=== PATIENT | female | born 1985 | race Caucasian/White ===

== ENCOUNTER → 2016-05-30 | Outpatient (CLI) | payer MEDICAID ==
[~2016-05-30] MED LIST: IBUP-232 PO; OMEP20TA PO; OMEP40CA2 PO; PROM25TA5 PO; TRAM50TA PO; ZOFR4TAB3 SL
[2016-05-30 11:09] LABS: AUTOMATED NEUTROPHIL # 6.4 TH/MM3 (1.8-7.7); BASOPHIL # 0.1 TH/MM3 (0-0.2); BASOPHIL % 0.5 % (0.0-2.0); EOSINOPHIL # 0.1 TH/MM3 (0-0.4); EOSINOPHIL % 1.1 % (0.0-4.0); HEMATOCRIT 42.7 % (35.0-46.0); HEMO FLAGS DIFF FINAL; LYMPH % 30.1 % (9.0-44.0); MEAN CELL VOLUME 89.6 FL (80.0-100.0); MEAN CORPUSCULAR HEMOGLOBIN 30.6 PG (27.0-34.0); MEAN CORPUSCULAR HGB CONC 34.1 % (32.0-36.0); MONO % 3.8 % (0.0-8.0); NEUT % 64.5 % (16.0-70.0); PLATELET COUNT 316 TH/MM3 (150-450); RED BLOOD COUNT 4.76 MIL/MM3 (4.00-5.30); RED CELL DISTRIBUTION WIDTH 13.8 % (11.6-17.2)
[2016-05-30 11:17] LABS: ALKALINE PHOSPHATASE 64 U/L (45-117); ALT (GPT) 20 U/L (10-53); ANION GAP 7 MEQ/L (5-15); AST (GOT) 12 U/L (15-37); BICARBONATE 29.4 MEQ/L (21.0-32.0); BLOOD UREA NITROGEN 11 MG/DL (7-18); CHLORIDE 102 MEQ/L (98-107); GLOMERULAR FILTRATION RATE 102 ML/MIN (>89); GLUCOSE,FASTING 83 MG/DL (74-99); POTASSIUM 4.2 MEQ/L (3.5-5.1); SODIUM (NA) 138 MEQ/L (136-145); TOTAL BILIRUBIN ADULT 0.4 MG/DL (0.2-1.0)
[2016-05-30 11:19] LABS: BHCG SCREEN QUALITATIVE LESS THAN 1 MIU/ML (0-5)
[2016-05-30 11:20] LABS: BLOOD, URINE NEG (NEG); GLUCOSE,URINE NEG (NEG); KETONE, URINE NEG (NEG); MUCUS URINE FEW /lpf (OCC); NITRITE,URINE NEG (NEG); PH, URINE 6.5 (5.0-8.5); URINE COLOR LIGHT-YELLOW (YELLW/STRAW)
[2016-05-30 11:30] LABS: COMMENT (UR) CULT NOT INDICATED; CULTURE IF INDICATED CULT NOT INDICATED
== END ==
LOC: CPRE 10:21
PROVIDERS: ATTEND Obstetrics & Gynecology Gynecology
DX: R10.2 Pelvic and perineal pain (principal); Z01.812 Encounter for preprocedural laboratory examination
CPT/HCPCS: 36415; 80053; 81001; 84703; 85025

== ENCOUNTER → 2016-06-07 | Day surgery (SDC) | payer MEDICAID ==
--- NOTE | 2016-05-30 17:41 | MH ---
cc: WESLEY SHER DATE OF ADMISSION: 06/07/2016 DATE OF : 09/21/1995 ADMITTING DIAGNOSIS Scheduled for admission on 06/07 for laparoscopy, cystoscopy, chronic pelvic pain, urinary retention and urinary pain. HISTORY OF PRESENT ILLNESS The patient is a 30-year-old white female 2, para 1 who has had issues with chronic pelvic pain and documented urinary retention. Her exam has been unremarkable. She has had negative imaging studies. She has had documented postvoid residuals that have actually decreased over the past several months but still having issues with pain on the right side worse when she has her period and bladder discomfort. She has been on opioids in the past for shoulder pain, she is presently on tramadol. MEDICAL HISTORY 1. Migraine headaches. 2. Chronic pain. 3. Shoulder injury. 4. Abnormal Pap smear. 5. Recurrent sinusitis. 6. Mild depression. MEDICATIONS 1. Phenergan 25 mg p.r.n. 2. Ibuprofen 600 mg t.i.d. p.r.n. 3. Tramadol 50 mg q.6 hours p.r.n. ALLERGIES NONE. GYNECOLOGIC HISTORY Distant history of abnormal Pap smears. Cycles are once a month. OBSTETRICAL HISTORY One vaginal delivery. FAMILY HISTORY Noncontributory. SOCIAL HISTORY Smokes half-a-pack a day. No alcohol or drugs. FAMILY HISTORY Noncontributory. REVIEW OF SYSTEMS As above. No chest pain orthopnea or PND. No nausea, vomiting, fever or chills. Otherwise, a 14-point review negative. PHYSICAL EXAMINATION VITAL SIGNS: She is afebrile, vital signs stable, blood pressure is 120/70. Height is 5'4", weight 145, BMI is 25. GENERAL: The patient is alert and oriented, in no acute distress. No sign of cognitive disfunction or depression. HEENT: Within normal limits. NECK: Supple. No JVD. CHEST: Clear. HEART: Regular rate and rhythm. ABDOMEN: Soft, nontender. No hepatosplenomegaly. No CVA tenderness. PELVIC EXAM: Will be detailed under anesthesia. EXTREMITIES: Normal. SKIN: Without rashes. NEUROLOGIC: Nonfocal. No DVT signs. ASSESSMENT The patient with chronic pelvic pain unresponsive to medicinal therapy. We have discussed extensively options for management and treatment. She is aware of the multifactorial nature of pelvic pain and the possibility of a negative laparoscopy. She is aware of the risks, benefits and alternatives of surgery and has made informed choice to proceed. Regarding cystoscopy, she does have bladder pain issues. She has a history of unexplained retention. She has had negative imaging study of the central nervous system. We will provide cystoscopic evaluation of the bladder to see if we can elicit any issues regarding obstruction. We will use antibiotic prophylaxis with Ancef 1 gram, DVT prophylaxis with sequential compression device. Anticipate outpatient procedure. MD LAITH Plata/BJF /5:06 PM /5:18 PM MTDD
[~2016-06-07] VITALS: Ht 162.6 cm; Wt 70.2 kg
[~2016-06-07] MED LIST changes: +ACETAMINOPHEN 1000 MG/100 ML VIAL IV ONE; +DEXAMETHASONE SOD PHOS 4 MG/ML VIAL ONE; +DO NOT ADM ANY ANTICOAGULANT DRUGS XX PRN; +FUROSEMIDE 40 MG/4 ML VIAL ONE; -IBUP-232 PO; +INSULIN HUMAN REGULAR 1,000 UNITS/10 ML VIAL SQ PRN; +KETOROLAC TROMETHAMINE 10 MG TAB PO PRN; +KETOROLAC TROMETHAMINE 30 MG/ML (IVP) VIAL IV PUSH PRN; +KETOROLAC TROMETHAMINE 60 MG/2 ML (IM) VIAL IM ONE; +KETOROLAC TROMETHAMINE 60 MG/2 ML (IM) VIAL IM PRN; +LACTATED RINGER'S 1000 ML INJ 1,000 ML IV ONE; +LACTATED RINGER'S 1000 ML INJ 1,000 ML ONE; +LACTATED RINGER'S 1000 ML IV SCH; +LIDOCAINE 1%/EPINEPHrine 1:100,000 SOLN 20 ML VIAL ONE; +METOPROLOL TARTRATE 25 MG TAB PO PRN; +MIDAZOLAM HCL 2 MG/2 ML VIAL ONE; +NEOSTIGMINE 3 MG/3 ML SYR IV ONE; +ONDANSETRON HCL 4 MG/2 ML VIAL IV PUSH ONE; +ONDANSETRON HCL 4 MG/2 ML VIAL IV PUSH PRN; -PROM25TA5 PO; +PROPOFOL 200 MG/20 ML AMP IV ONE; +SODIUM CHLORID 0.9% 500 ML IV SCH; +SODIUM CHLORIDE 0.9% INJ 100 ML ONE; -TRAM50TA PO; +ceFAZolin 1,000 MG/NS 100 ML IV SCH; +ceFAZolin INJ 1,000 MG VIAL ONE; +fentaNYL CITRATE 250 MCG/5 ML AMP ONE
[2016-06-07 06:50] VITALS: BP 135/72; PULSE 65; RESP 16; TEMP 98.5; O2SAT 98
[2016-06-07 09:20] VITALS: PULSE 116
[2016-06-07 11:08] VITALS: BP 151/78; PULSE 71; RESP 16; O2SAT 100
--- NOTE | 2016-06-12 07:58 | MP ---
cc: JORGE SHER MD DATE OF SURGERY 06/07/2016 PREOPERATIVE DIAGNOSES 1. Chronic pelvic pain 2. Bladder dysfunction and pain POSTOPERATIVE DIAGNOSIS 1. Chronic pelvic pain 2. Bladder dysfunction and pain with paratubal cysts bilaterally on the tubes. 3. Small foci of endometriosis right uterosacral ligament. 4. Normal bladder PROCEDURE 1. Laparoscopic revision of tubes with paratubal cysts. 2. Diagnostic cystoscopy coupled with diagnosis of bladder pain. 3. Removal of a foci of endometriosis right uterosacral ligament. SURGEON Jorge Sher MD ANESTHESIA Endotracheal BLOOD LOSS Less and 10 cc URINE OUTPUT 200 cc of crystalloid [employer] [place] staff x1 FINDINGS External genitalia normal. POP-Q score: Aa is -2, Ap is -2. Point C is -8. Total vaginal length is 10. Genital hiatus is 6. Perineal body is 4. The uterus is retroverted, mobile, normal size. On the right side, there is approximately 1 cm x 2 cm paratubal cysts, clear fluid mobile. Next on the left side a slightly larger paratubal cyst, but the ovary is mobile and the tube itself is mobile. The right uterosacral ligament has a foci of endometriosis. The upper abdomen is normal with normal appendix as well. Cystoscopy shows normal trigone, good coaptation of urethra, ureteral orifices patent x2. Dome and base of bladder normal. No sign of Mich's ulcers, glomerulations or other abnormalities of the bladder. SPECIMENS 1. Right paratubal cyst 2. Left paratubal cyst COMPLICATIONS None DISPOSITION To recovery room stable. COUNTS Needle and sponge counts correct. DRAINS Neville catheter ANTIBIOTIC PROPHYLAXIS Ancef one gram DVT PROPHYLAXIS Sequential compression device. TIME OUT PROCEDURE Per protocol SUMMARY OF INDICATIONS FOR THE PROCEDURE Patient with chronic pelvic pain predominantly right side, but sometimes comes across to the left. Also has issues with bladder dysfunction including pain and difficulty emptying the bladder. She has had negative imaging studies and has opted for surgical evaluation. The patient was taken to the operating room theater, identified, prepped and draped in a fashion appropriate for the planned procedure. She is in the dorsal lithotomy position with careful attention paid to placement of legs in the stirrups to avoid undue stress to sensitive neurovascular structures. The above findings noted. Neurovascular integrity documented. Neville catheter was placed. The umbilicus was infiltrated with epinephrine/lidocaine solution. A 5 mL scope was placed under direct visualization. Trendelenburg position instituted. A suprapubic catheter and a suprapubic trocar was placed under direct visualization. The above findings noted. The left lower quadrant trocar was placed under direct visualization. Paratubal cysts were removed on the right and left. Some revision of the left-sided tube was required, but overall the tubes were mobile. Ovaries were normal. Appendix and upper abdomen were normal. There was a small foci of endometriosis over the right uterosacral ligament. This was removed without difficulty. Gas was expressed. All areas were hemostatic with and without gas pressure. We placed hemostatic powder over the areas of dissection for added reassurance The incisions were closed with 4-0 Vicryl and Dermabond. In light of the patient's history of bladder dysfunction and bladder pain, cystoscopy was performed. A 17-Swedish bridge, a 70 degrees scope was used normal. Normal saline was used for distension media. The above findings noted. There were no abnormalities of the bladder noted. The procedure was concluded. The patient reversed from anesthesia, taken to the recovery room stable condition. Should the patient have issues with continued pain, it is more likely to be a bowel issue with IBS, although it is possible that there could be some dysmenorrhea and endometriosis issues that may benefit from menstrual suppression. As far as the bladder dysfunction goes, there was no clear etiology to that issue. It may be related to her use of narcotics for shoulder pain. MD LAITH Plata/KIM /9:24 AM /7:37 AM
== END | disposition home or self-care (01) ==
LOC: HSDC 06:02
PROVIDERS: ATTEND Obstetrics & Gynecology Gynecology
DX: N80.9 Endometriosis, unspecified (principal); N83.8 Other noninflammatory disorders of ovary, fallopian tube and broad ligament; R10.2 Pelvic and perineal pain; R39.89 Other symptoms and signs involving the genitourinary system; G89.29 Other chronic pain; R33.9 Retention of urine, unspecified
CPT/HCPCS: 00840; 52000; 58662; 88304; J0131; J0690; J1100; J1885; J1940; J2250; J2405; J2710; J3010; J7120

== ENCOUNTER 2017-01-19 06:19 | Emergency (ER) | payer MEDICAID ==
[~2017-01-19] VITALS: Ht 157.5 cm; Wt 70.0 kg
[~2017-01-19 06:19] MED LIST changes: -ACETAMINOPHEN 1000 MG/100 ML VIAL IV ONE; -DEXAMETHASONE SOD PHOS 4 MG/ML VIAL ONE; -DO NOT ADM ANY ANTICOAGULANT DRUGS XX PRN; -FUROSEMIDE 40 MG/4 ML VIAL ONE; -INSULIN HUMAN REGULAR 1,000 UNITS/10 ML VIAL SQ PRN; -KETOROLAC TROMETHAMINE 10 MG TAB PO PRN; -KETOROLAC TROMETHAMINE 30 MG/ML (IVP) VIAL IV PUSH PRN; -KETOROLAC TROMETHAMINE 60 MG/2 ML (IM) VIAL IM ONE; -KETOROLAC TROMETHAMINE 60 MG/2 ML (IM) VIAL IM PRN; -LACTATED RINGER'S 1000 ML INJ 1,000 ML IV ONE; -LACTATED RINGER'S 1000 ML INJ 1,000 ML ONE; -LACTATED RINGER'S 1000 ML IV SCH; -LIDOCAINE 1%/EPINEPHrine 1:100,000 SOLN 20 ML VIAL ONE; -METOPROLOL TARTRATE 25 MG TAB PO PRN; -MIDAZOLAM HCL 2 MG/2 ML VIAL ONE; -NEOSTIGMINE 3 MG/3 ML SYR IV ONE; -OMEP20TA PO; -ONDANSETRON HCL 4 MG/2 ML VIAL IV PUSH ONE; -ONDANSETRON HCL 4 MG/2 ML VIAL IV PUSH PRN; -PROPOFOL 200 MG/20 ML AMP IV ONE; -SODIUM CHLORID 0.9% 500 ML IV SCH; -SODIUM CHLORIDE 0.9% INJ 100 ML ONE; -ceFAZolin 1,000 MG/NS 100 ML IV SCH; -ceFAZolin INJ 1,000 MG VIAL ONE; -fentaNYL CITRATE 250 MCG/5 ML AMP ONE
[2017-01-19 06:21] VITALS: BP 113/72; PULSE 81; RESP 16; TEMP 98; O2SAT 98
[2017-01-19] MEDS ORDERED: LEVO750T3 PO (06:39)
[2017-01-19] MEDS ORDERED: TIZA4CAP3 PO (06:39)
[2017-01-19] MEDS ORDERED: ACETAMINOPHEN/HYDROcodone 325 MG/5 MG TAB PO ONE (07:45)
[2017-01-19] MEDS ORDERED: HYDR-3533 PO (07:46)
--- NOTE | 2017-01-19 07:46 | PD ---
HPI Chief Complaint: Musculoskeletal Complaint Time Seen by Provider: 07:31 Travel History International Travel<30 days: No Contact w/Intl Traveler<30days: No Traveled to known affect area: No History of Present Illness HPI The patient is 31 years old. She reports waking up at 1 AM, 6 hours prior to ER arrival with severe pain in her bilateral hips knees and ankles. Quality ripping. Timing constant. She took a hot bath and tried Tylenol and Advil and tramadol. Nothing seemed to help. No fever. No rash. She reports normal state of health lately with no traumatic or excessive use type mechanism to explain her pain. She is a history of endometriosis, migraines, and chronic right shoulder pain following a injury 9 years ago. PFSH Past Medical History Bipolar Disorder: Yes Cancer: No Cardiovascular Problems: No Diabetes: No Diminished Hearing: No Endocrine: No Gastrointestinal Disorders: Yes (PELVIC PAIN, ESOPHAGITIS) Genitourinary: No Hepatitis: No Hiatal Hernia: Yes Immune Disorder: No Medical other: Yes (endmeteriosis) Musculoskeletal: No Neurologic: Yes (MIGRAINES) Psychiatric: No Reproductive: No Respiratory: No Migraines: Yes Thyroid Disease: No Tetanus Vaccination: Unknown ?: Not LMP: 12/29/2016 : 2 Para: 0 Miscarriage: 1 Past Surgical History AICD: No Body Medical Devices: PLATE AKANKSHA RIGHT SHOULDER Joint Replacement: No Pacemaker: No Social History Alcohol Use: Yes (occasionally) Tobacco Use: Yes Substance Use: No Allergies-Medications (Allergen,Severity, Reaction): Coded Allergies: No Known Allergies (Unverified , 01/19/17) Reported Meds & Prescriptions Reported Meds & Active Scripts Active Lortab (Hydrocodone-Acetaminophen) 5-325 Mg Tab 1-2 Tab PO Q6H PRN PLEASE DO NOT TAKE AT THE SAME TIME TIZANIDINE OR ANY NARCOTIC OR SEDATIVE. Reported Levofloxacin 750 Mg Tablet 750 Mg PO DAILY Tizanidine (Tizanidine HCl) 4 Mg Cap 4 Mg PO TID Zofran Odt (Ondansetron Odt) 4 Mg Tab 4 Mg SL Q8HR PRN Review of Systems Except as stated in HPI: all other systems reviewed are Neg General / Constitutional: No: Fever Physical Exam Narrative Vital Signs Date Time Temp Pulse Resp B/P (MAP) Pulse Ox O2 Delivery O2 Flow Rate FiO2 01/19/17 08:03 01/19/17 06:21 98.0 81 16 113/72 (56) 98 Room Air GENERAL: 31-year-old female pleasant well-nourished well-developed. SKIN: Focused skin assessment warm/dry. HEAD: Atraumatic. Normocephalic. EYES: Pupils equal and round. No scleral icterus. No injection or drainage. ENT: No nasal bleeding or discharge. Mucous membranes pink and moist. NECK: Trachea midline. No JVD. CARDIOVASCULAR: Regular rate and rhythm. No murmur appreciated. RESPIRATORY: No accessory muscle use. Clear to auscultation. Breath sounds equal bilaterally. GASTROINTESTINAL: Abdomen soft, non-tender, nondistended. Hepatic and splenic margins not palpable. MUSCULOSKELETAL: No obvious deformities. No clubbing. No cyanosis. No edema. Passive active ROM hips/knees/ankles intact. Active ROM intact. Ambulatory. NEUROLOGICAL: Awake and alert. No obvious cranial nerve deficits. Motor grossly within normal limits. Normal speech. PSYCHIATRIC: Appropriate mood and affect; insight and judgment normal. Data Data Last Documented VS Vital Signs Date Time Temp Pulse Resp B/P (MAP) Pulse Ox O2 Delivery O2 Flow Rate FiO2 01/19/17 08:03 01/19/17 06:21 98.0 81 16 98 Room Air Orders Orders Acetamin-Hydrocod 325-5 Mg (Tappen 5-325 (01/19/17 07:45) MDM Medical Decision Making Medical Screen Exam Complete: Yes Emergency Medical Condition: Yes Medical Record Reviewed: Yes Differential Diagnosis septic arthritis, fracture, gonococcal arthritis, trauma, chronic pain, restless leg syndrome Narrative Course No acute medical/surgical emergency. Pain control. Follow up with PMD. Return precautions discussed. Diagnosis Primary Impression: Polyarthritis of lower leg Additional Impression: Polyarthropathy of joints of lower leg Referrals: Primary Care Physician 2 days Additional Instructions: You have a choice when it comes to health care, and we are glad that you chose [facility]. Hopefully, we have met your expectations on today's visit. You are welcome to return to [facility] at any time, as we are committed to meeting the health care needs of our community. Med/Other Pt SpecificInfo: Prescription(s) given Scripts Hydrocodone-Acetaminophen (Lortab) 5-325 Mg Tab 1-2 TAB PO Q6H Y for PAIN SCALE 6 TO 10, #12 TAB 0 Refills PLEASE DO NOT TAKE AT THE SAME TIME TIZANIDINE OR ANY NARCOTIC OR SEDATIVE. Prov: Esvin Talbot MD 01/19/17 Disposition: 01 DISCHARGE HOME Condition: Stable Esvin Talbot MD Jan 19, 2017 07:46
== END 2017-01-19 08:10 | disposition home or self-care (01) ==
LOC: NEPC 06:19
DX: M13.0 Polyarthritis, unspecified (principal); G89.29 Other chronic pain; Z72.0 Tobacco use
CPT/HCPCS: 99283

== ENCOUNTER 2017-01-21 11:58 | Emergency (ER) | payer MEDICAID ==
[~2017-01-21 11:58] MED LIST changes: +HYDR-3533 PO; +LEVO750T3 PO; -OMEP40CA2 PO; +TIZA4CAP3 PO
[2017-01-21 12:00] VITALS: BP 152/65; PULSE 97; RESP 20; TEMP 98.8; O2SAT 98
--- NOTE | 2017-01-21 12:17 | PD ---
Data Data Last Documented VS Vital Signs Date Time Temp Pulse Resp B/P (MAP) Pulse Ox O2 Delivery O2 Flow Rate FiO2 01/21/17 15:36 76 18 146/72 (96) 98 01/21/17 12:00 98.8 Room Air Orders Orders Complete Blood Count With Diff (01/21/17 12:28) Basic Metabolic Panel (Bmp) (01/21/17 12:28) C-Reactive Protein (Crp) (01/21/17 12:28) Urinalysis - C+S If Indicated (01/21/17 12:28) Westergren Sedimentation Rate (01/21/17 12:28) Magnesium (Mg) (01/21/17 12:28) Thyroid Stimulating Hormone (01/21/17 12:28) Iv Access Insert/Monitor (01/21/17 12:28) Pelvis, Ap Only (Routine) (01/21/17 ) Methylprednisolone So Succ Inj (Solumedr (01/21/17 12:30) Ketorolac Inj (Toradol Inj) (01/21/17 12:30) Morphine Inj (Morphine Inj) (01/21/17 12:30) Knee, Complete (4vws) (01/21/17 ) Knee, Complete (4vws) (01/21/17 ) Ct Lumb Spine W/O Contrast (01/21/17 ) Rheumatoid Screen/Titer (Rf) (01/21/17 12:35) Creatine Kinase (Cpk) (01/21/17 13:06) Ondansetron Inj (Zofran Inj) (01/21/17 13:30) Ceftriaxone Inj (Rocephin Inj) (01/21/17 14:00) Labs Laboratory Tests Test 01/21/17 12:50 White Blood Count 13.2 TH/MM3 Red Blood Count 4.93 MIL/MM3 Hemoglobin 15.2 GM/DL Hematocrit 45.3 % Mean Corpuscular Volume 92.0 FL Mean Corpuscular Hemoglobin 30.8 PG Mean Corpuscular Hemoglobin Concent 33.5 % Red Cell Distribution Width 14.8 % Platelet Count 240 TH/MM3 Mean Platelet Volume 8.4 FL Neutrophils (%) (Auto) 74.8 % Lymphocytes (%) (Auto) 19.0 % Monocytes (%) (Auto) 4.9 % Eosinophils (%) (Auto) 0.8 % Basophils (%) (Auto) 0.5 % Neutrophils # (Auto) 9.9 TH/MM3 Lymphocytes # (Auto) 2.5 TH/MM3 Monocytes # (Auto) 0.6 TH/MM3 Eosinophils # (Auto) 0.1 TH/MM3 Basophils # (Auto) 0.1 TH/MM3 CBC Comment DIFF FINAL Differential Comment Erythrocyte Sedimentation Rate 1 mm/hr Urine Color YELLOW Urine Turbidity CLEAR Urine pH 6.5 Urine Specific [place] 1.012 Urine Protein NEG mg/dL Urine Glucose (UA) NEG mg/dL Urine Ketones 10 mg/dL Urine Occult Blood SMALL Urine Nitrite NEG Urine Bilirubin NEG Urine Urobilinogen LESS THAN 2.0 MG/DL Urine Leukocyte Esterase TRACE Urine RBC 5 /hpf Urine WBC 1 /hpf Urine Squamous Epithelial Cells 3 /hpf Urine Bacteria OCC /hpf Microscopic Urinalysis Comment CULT NOT INDICATED Blood Urea Nitrogen 11 MG/DL Creatinine 0.55 MG/DL Random Glucose 74 MG/DL Calcium Level 8.6 MG/DL Magnesium Level 2.4 MG/DL Sodium Level 137 MEQ/L Potassium Level 4.3 MEQ/L Chloride Level 105 MEQ/L Carbon Dioxide Level 24.1 MEQ/L Anion Gap 8 MEQ/L Estimat Glomerular Filtration Rate 129 ML/MIN Total Creatine Kinase 81 U/L C-Reactive Protein 2.91 MG/DL Thyroid Stimulating Hormone 3rd Gen 0.724 uIU/ML Rheumatoid Factor Screen NEGATIVE Rheumatoid Factor Titer IU/ML [place] Medical Record Reviewed: Yes Supervised Visit with SON: No Narrative Course 31 yo F. Pain in bilateral hips, knees and ankles. Duration x 5 days. Primary MD : Dr Viramontes sent to ER. Scripts Diclofenac Sodium (Diclofenac Sodium ) 75 Mg Tabdr 75 MG PO BID Y for PAIN SCALE 1 TO 10, #30 TAB 0 Refills Prov: Corrine Stallings MD 01/21/17 Hydrocodone-Acetaminophen (Lortab) 5-325 Mg Tab 1 TAB PO Q6H Y for PAIN, #15 TAB 0 Refills Prov: Corrine Stallings MD 01/21/17 Cephalexin (Keflex) 500 Mg Cap 500 MG PO Q8H for Infection for 10 Days, #3 CAP 0 Refills Prov: Corrine Stallings MD 01/21/17 Prednisone (48) 10 mg tab Dose Pack (Prednisone (48) 10 mg tab Dose Pack) 10 Mg Dspk 10 MG PO DIRECTED for Inflammation, #1 DSPK 0 Refills Prov: Corrine Stallings MD 01/21/17 Esvin Talbot MD Jan 21, 2017 12:17
[2017-01-21] MEDS ORDERED: methylPREDNISolone SOD SUCC 125 MG/2 ML VIAL IV PUSH ONE (12:30)
[2017-01-21] MEDS ORDERED: MORPHINE SULFATE 4 MG/ML INJ IV PUSH ONE (12:30)
[2017-01-21] MEDS ORDERED: KETOROLAC TROMETHAMINE 30 MG/ML (IVP) VIAL IV PUSH ONE (12:30)
--- NOTE | 2017-01-21 12:42 | PD ---
HPI Chief Complaint: Pain: Acute or Chronic Time Seen by Provider: 12:22 Travel History International Travel<30 days: No Contact w/Intl Traveler<30days: No Traveled to known affect area: No History of Present Illness HPI 31 yo female here for bilateral hip, knee and ankle pain. Per patient since Friday. Not getting better after being seen here. Seen by PCP who sent her by ambulance to [facility], patient was there for 1 hour and decided to come here instead. Per patient lortab doesn't help much. Pain feels like a burning to her joints. Recently on levaquin and steroids for ear infection. Has stopped meds for a week now. No injuries. No imaging or labs done. Unclear why PCP sent patient to the ER. pain per patient is 10 and only on the lower joints. No allergies to meds. Denies IV drugs. No STD exposure. PFSH Past Medical History Bipolar Disorder: Yes Cancer: No Cardiovascular Problems: No Diabetes: No Diminished Hearing: No Endocrine: No Gastrointestinal Disorders: Yes (PELVIC PAIN, ESOPHAGITIS) Genitourinary: No Hepatitis: No Hiatal Hernia: Yes Immune Disorder: No Musculoskeletal: No Neurologic: Yes (MIGRAINES) Psychiatric: No Reproductive: No Respiratory: No Migraines: Yes Thyroid Disease: No ?: Not : 2 Para: 1 Miscarriage: 1 Past Surgical History AICD: No Body Medical Devices: PLATE AKANKSHA RIGHT SHOULDER Joint Replacement: No Pacemaker: No Other Surgery: Yes Social History Alcohol Use: Yes (occasionally) Tobacco Use: Yes (pack a day ) Substance Use: No Allergies-Medications (Allergen,Severity, Reaction): Coded Allergies: No Known Allergies (Unverified , 01/21/17) Reported Meds & Prescriptions Reported Meds & Active Scripts Active Diclofenac Sodium DR (Diclofenac Sodium) 75 Mg Tabdr 75 Mg PO BID PRN Lortab (Hydrocodone-Acetaminophen) 5-325 Mg Tab 1 Tab PO Q6H PRN Keflex (Cephalexin) 500 Mg Cap 500 Mg PO Q8H 10 Days Prednisone (48) 10 mg tab Dose Pack (Prednisone) 10 Mg Dspk 10 Mg PO DIRECTED Lortab (Hydrocodone-Acetaminophen) 5-325 Mg Tab 1-2 Tab PO Q6H PRN PLEASE DO NOT TAKE AT THE SAME TIME TIZANIDINE OR ANY NARCOTIC OR SEDATIVE. Reported Levofloxacin 750 Mg Tablet 750 Mg PO DAILY Tizanidine (Tizanidine HCl) 4 Mg Cap 4 Mg PO TID Zofran Odt (Ondansetron Odt) 4 Mg Tab 4 Mg SL Q8HR PRN Review of Systems Except as stated in HPI: all other systems reviewed are Neg Physical Exam Narrative GENERAL: SKIN: Warm and dry. HEAD: Atraumatic. Normocephalic. EYES: Pupils equal and round. No scleral icterus. No injection or drainage. ENT: No nasal bleeding or discharge. Mucous membranes pink and moist. Tongue is midline. No uvula deviation. NECK: Trachea midline. No JVD. CARDIOVASCULAR: Regular rate and rhythm. No murmurs, S3, S4. RESPIRATORY: No accessory muscle use. Clear to auscultation. Breath sounds equal bilaterally. GASTROINTESTINAL: Abdomen soft, non-tender, nondistended. Hepatic and splenic margins not palpable. MUSCULOSKELETAL: Extremities without clubbing, cyanosis, or edema. No obvious deformities. Full range of motion of the upper and lower extremities bilaterally. 2+ pulses bilaterally. No obvious deformity noted to the joints. No obvious swelling noted to the joints. Patient able to move the joints fully. Very fidgety on the lower legs and cannot keep the lower legs still. NEUROLOGICAL: Awake and alert. No obvious cranial nerve deficits. Motor grossly within normal limits. Five out of 5 muscle strength in the arms and legs. Normal speech. PSYCHIATRIC: Appropriate mood and affect; insight and judgment normal. Data Data Last Documented VS Vital Signs Date Time Temp Pulse Resp B/P (MAP) Pulse Ox O2 Delivery O2 Flow Rate FiO2 01/21/17 13:41 18 01/21/17 12:25 94 01/21/17 12:00 98.8 152/65 (94) 98 Room Air Orders Orders Complete Blood Count With Diff (01/21/17 12:28) Basic Metabolic Panel (Bmp) (01/21/17 12:28) C-Reactive Protein (Crp) (01/21/17 12:28) Urinalysis - C+S If Indicated (01/21/17 12:28) Westergren Sedimentation Rate (01/21/17 12:28) Magnesium (Mg) (01/21/17 12:28) Thyroid Stimulating Hormone (01/21/17 12:28) Iv Access Insert/Monitor (01/21/17 12:28) Pelvis, Ap Only (Routine) (01/21/17 ) Methylprednisolone So Succ Inj (Solumedr (01/21/17 12:30) Ketorolac Inj (Toradol Inj) (01/21/17 12:30) Morphine Inj (Morphine Inj) (01/21/17 12:30) Knee, Complete (4vws) (01/21/17 ) Knee, Complete (4vws) (01/21/17 ) Ct Lumb Spine W/O Contrast (01/21/17 ) Rheumatoid Screen/Titer (Rf) (01/21/17 12:35) Creatine Kinase (Cpk) (01/21/17 13:06) Ondansetron Inj (Zofran Inj) (01/21/17 13:30) Ceftriaxone Inj (Rocephin Inj) (01/21/17 14:00) Labs Laboratory Tests Test 01/21/17 12:50 White Blood Count 13.2 TH/MM3 Red Blood Count 4.93 MIL/MM3 Hemoglobin 15.2 GM/DL Hematocrit 45.3 % Mean Corpuscular Volume 92.0 FL Mean Corpuscular Hemoglobin 30.8 PG Mean Corpuscular Hemoglobin Concent 33.5 % Red Cell Distribution Width 14.8 % Platelet Count 240 TH/MM3 Mean Platelet Volume 8.4 FL Neutrophils (%) (Auto) 74.8 % Lymphocytes (%) (Auto) 19.0 % Monocytes (%) (Auto) 4.9 % Eosinophils (%) (Auto) 0.8 % Basophils (%) (Auto) 0.5 % Neutrophils # (Auto) 9.9 TH/MM3 Lymphocytes # (Auto) 2.5 TH/MM3 Monocytes # (Auto) 0.6 TH/MM3 Eosinophils # (Auto) 0.1 TH/MM3 Basophils # (Auto) 0.1 TH/MM3 CBC Comment DIFF FINAL Differential Comment Erythrocyte Sedimentation Rate 1 mm/hr Urine Color YELLOW Urine Turbidity CLEAR Urine pH 6.5 Urine Specific [place] 1.012 Urine Protein NEG mg/dL Urine Glucose (UA) NEG mg/dL Urine Ketones 10 mg/dL Urine Occult Blood SMALL Urine Nitrite NEG Urine Bilirubin NEG Urine Urobilinogen LESS THAN 2.0 MG/DL Urine Leukocyte Esterase TRACE Urine RBC 5 /hpf Urine WBC 1 /hpf Urine Squamous Epithelial Cells 3 /hpf Urine Bacteria OCC /hpf Microscopic Urinalysis Comment CULT NOT INDICATED Blood Urea Nitrogen 11 MG/DL Creatinine 0.55 MG/DL Random Glucose 74 MG/DL Calcium Level 8.6 MG/DL Magnesium Level 2.4 MG/DL Sodium Level 137 MEQ/L Potassium Level 4.3 MEQ/L Chloride Level 105 MEQ/L Carbon Dioxide Level 24.1 MEQ/L Anion Gap 8 MEQ/L Estimat Glomerular Filtration Rate 129 ML/MIN C-Reactive Protein 2.91 MG/DL Thyroid Stimulating Hormone 3rd Gen 0.724 uIU/ML Rheumatoid Factor Screen NEGATIVE Rheumatoid Factor Titer IU/ML MDM Medical Decision Making Medical Screen Exam Complete: Yes Emergency Medical Condition: Yes Medical Record Reviewed: Yes Interpretation(s) CT of the lumbar spine show chronic changes but no acute disease. X-ray of the pelvis as well as the knees were negative for acute disease. CRP elevated at 2 ESR within normal limits. TSH WNL CBC & BMP Diagram 01/21/17 12:50 Calcium Level 8.6, Magnesium Level 2.4 Differential Diagnosis Polyarthritis versus polyarthropathy versus anxiety versus restless leg syndrome versus rheumatoid arthritis versus arthropathy versus medication side effect Narrative Course 31-year-old female that presents to the ED for evaluation of lower leg pain and burning. Patient was properly examined and was found to have signs and symptoms of unclear etiology. Patient was seen here and evaluated 2 days ago and had no imaging or blood work done. Patient was given Lortab with minimal relief. Patient was seen by her PCP today and was sent to the ER. She comes here for reevaluation. At this time unclear etiology of her symptoms. She does not appear to have any deficits neurologically or vascularly. She was recently on a fluoroquinolone as well as steroids. Questionable arthropathy versus poly arthropathy like rheumatoid arthritis or radiculopathy. Patient was started on IV. Labs were ordered. Imaging was ordered. Patient was started on anti-inflammatories to cover for arthropathy as well as pain medication. Labs and imaging showed no sign of acute . Elevated CRP. I do not believe this is septic arthritis as patient has pain in multiple joints. Patient is able to move all joints in no acute discomfort. No redness or warmth. No history of IV drug abuse. Patient does have a UTI as well. She will be given ceftriaxone here. I suspect that this may be a rheumatological condition she was started on high-dose steroids. She will be given a prescription for prednisone, diclofenac sodium, Keflex as well as Lortab for pain. She was told that she needs to follow with her buggy operator outpatient for further evaluation. This could also be a reaction to the levaquin. But unclear at this time. See ED if worst. All questions were answered to the best of my ability. Patient agrees with plan. Diagnosis Primary Impression: Polyarthropathy of joints of lower leg Patient Instructions: General Instructions, Narcotic given in the ED Additional Instructions: Take medications as prescribed. Follow-up with PCP or buggy operator See ED for any worsening symptoms. Do not drink or drive while taking pain medication. Apply ice or heat as needed for pain Med/Other Pt SpecificInfo: Prescription(s) given Scripts Diclofenac Sodium DR (Diclofenac Sodium DR) 75 Mg Tabdr 75 MG PO BID Y for PAIN SCALE 1 TO 10, #30 TAB 0 Refills Prov: Corrine Stallings MD 01/21/17 Hydrocodone-Acetaminophen (Lortab) 5-325 Mg Tab 1 TAB PO Q6H Y for PAIN, #15 TAB 0 Refills Prov: Corrine Stallings MD 01/21/17 Cephalexin (Keflex) 500 Mg Cap 500 MG PO Q8H for Infection for 10 Days, #3 CAP 0 Refills Prov: Corrine Stallings MD 01/21/17 Prednisone (48) 10 mg tab Dose Pack (Prednisone (48) 10 mg tab Dose Pack) 10 Mg Dspk 10 MG PO DIRECTED for Inflammation, #1 DSPK 0 Refills Prov: Corrine Stallings MD 01/21/17 Disposition: 01 DISCHARGE HOME Condition: Stable Monico Pimentel Jan 21, 2017 12:42
--- NOTE | 2017-01-21 13:04 | RADRPT ---
EXAM DATE/TIME: 01/21/2017 12:45 [facility] COMPARISON: No previous studies available for comparison. INDICATIONS : Right knee pain in joint area. MEDICAL HISTORY : None. SURGICAL HISTORY : Right shoulder. ENCOUNTER: Initial ACUITY: 3 days PAIN SCORE: 8/10 LOCATION: Right knee FINDINGS: Four view examination of the right knee demonstrates no evidence of fracture or dislocation. Bony mi neralization is normal. The articular surfaces are intact. The suprapatellar soft tissues have a no rmal configuration. CONCLUSION: No acute fracture. Michael Madden MD on January 21, 2017 at 13:02 Board Certified Radiologist. This report was verified electronically.
--- NOTE | 2017-01-21 13:04 | RADRPT ---
EXAM DATE/TIME: 01/21/2017 12:46 [facility] COMPARISON: No previous studies available for comparison. INDICATIONS : Left knee pain in joint area. MEDICAL HISTORY : None. SURGICAL HISTORY : Right shoulder. ENCOUNTER: Initial ACUITY: 3 days PAIN SCORE: 8/10 LOCATION: Left knee FINDINGS: Four view examination of the left knee demonstrates no evidence of fracture or dislocation. Bony min eralization is normal. The articular surfaces are intact. The suprapatellar soft tissues have a nor mal configuration. CONCLUSION: No acute fracture. Michael Madden MD on January 21, 2017 at 13:03 Board Certified Radiologist. This report was verified electronically.
--- NOTE | 2017-01-21 13:04 | RADRPT ---
EXAM DATE/TIME: 01/21/2017 12:44 [facility] COMPARISON: No previous studies available for comparison. INDICATIONS : Pelvic pain in bilateral hip joint area. MEDICAL HISTORY : None. SURGICAL HISTORY : Right shoulder. ENCOUNTER: Initial ACUITY: 3 days PAIN SCORE: 8/10 LOCATION: pelvis FINDINGS: A single frontal view of the pelvis demonstrates no evidence of fracture. The bony pelvic ring is in tact. Bony mineralization is normal. The soft tissues are intact. CONCLUSION: No fracture. Michael Madden MD on January 21, 2017 at 13:02 Board Certified Radiologist. This report was verified electronically.
[2017-01-21 13:24] LABS: BACTERIA, URINE OCC /hpf; BLOOD, URINE SMALL (NEG); COMMENT (UR) CULT NOT INDICATED; CULTURE IF INDICATED CULT NOT INDICATED; GLUCOSE,URINE NEG (NEG); KETONE, URINE 10 mg/dL (NEG); NITRITE,URINE NEG (NEG); PH, URINE 6.5 (5.0-8.5); SQUAMOUS EPITHELIAL CELL URINE 3 /hpf (0-5); URINE COLOR YELLOW (YELLW/STRAW)
[2017-01-21 13:25] LABS: AUTOMATED NEUTROPHIL # 9.9 TH/MM3 (1.8-7.7); BASOPHIL # 0.1 TH/MM3 (0-0.2); BASOPHIL % 0.5 % (0.0-2.0); EOSINOPHIL # 0.1 TH/MM3 (0-0.4); EOSINOPHIL % 0.8 % (0.0-4.0); HEMATOCRIT 45.3 % (35.0-46.0); HEMO FLAGS DIFF FINAL; LYMPHOCYTE # 2.5 TH/MM3 (1.0-4.8); MEAN CORPUSCULAR HEMOGLOBIN 30.8 PG (27.0-34.0); MEAN CORPUSCULAR HGB CONC 33.5 % (32.0-36.0); MONO % 4.9 % (0.0-8.0); NEUT % 74.8 % (16.0-70.0); PLATELET COUNT 240 TH/MM3 (150-450); RED BLOOD COUNT 4.93 MIL/MM3 (4.00-5.30); RED CELL DISTRIBUTION WIDTH 14.8 % (11.6-17.2); WHITE BLOOD COUNT 13.2 TH/MM3 (4.0-11.0)
[2017-01-21] MEDS ORDERED: ONDANSETRON HCL 4 MG/2 ML VIAL IV PUSH ONE (13:30)
--- NOTE | 2017-01-21 13:40 | RADRPT ---
EXAM DATE/TIME: 01/21/2017 13:09 [facility] COMPARISON: No previous studies available for comparison. INDICATIONS : Bilateral leg pain for 2 days RADIATION DOSE: 19.45 CTDIvol (mGy) MEDICAL HISTORY : Hypertension. SURGICAL HISTORY : None. ENCOUNTER: Initial ACUITY: 2 days PAIN SCALE: 8/10 LOCATION: Bilateral lower extremities TECHNIQUE: Volumetric scanning of the lumbar spine was performed. Multiplanar reconstructions in the sagittal, coronal and oblique axial planes were performed. Using automated exposure control and adjustment of the mA and/or kV according to patient size, radiation dose was kept as low as reasonably achievable t o obtain optimal diagnostic quality images. DICOM format image data is available electronically for review and comparison. FINDINGS: VERTEBRAE: Normal vertebral body height. ALIGNMENT: No evidence of subluxation. Paraspinal soft tissues: Visualized portions of the kidneys demonstrate no evidence of hydro-nephrosis or radiopaque lei l calculi. No significant retroperitoneal adenopathy. Abdominal aorta is normal in caliber. T12-L1: The thecal sac has a normal diameter. No evidence of disc bulge or protrusion. The neural foramina are patent bilaterally. L1-L2: Subtle disc bulge without central canal or neural femoral stenosis. L2-L3: Subtle disc bulge without central canal or neural foraminal stenosis. L3-L4: Very mild diffuse disc bulge and minimal ligamentum flavum hypertrophy without significant central ca nal or neural foraminal stenosis L4-L5: Diffuse disc bulge with ligamentum flavum hypertrophy. Resultant mild effacement of the anterior thec al sac the central canal measuring up to 11 mm. Very mild caudal neural foraminal narrowing. L5-S1: Mild diffuse disc bulge and mild ligamentum flavum hypertrophy. Subtle effacement of the anterior the willima sac. Very mild caudal neural foraminal stenosis. CONCLUSION: 1. No acute fracture or subluxation. 2. Mild degenerative spondylosis of the lumbar spine most prominently at L4-5 with diffuse disc bulge resulting in mild central canal narrowing and mild caudal bilateral neural foraminal stenosis Rafa Brown MD on January 21, 2017 at 13:33 Board Certified Radiologist. This report was verified electronically.
[2017-01-21 13:44] LABS: BICARBONATE 24.1 MEQ/L (21.0-32.0); MAGNESIUM 2.4 MG/DL (1.5-2.5); POTASSIUM 4.3 MEQ/L (3.5-5.1)
[2017-01-21 13:46] LABS: RHEUMATOID FACTOR TRIGGER LESS THAN 10.0 IU/ML (0.0-14.9)
[2017-01-21] MEDS ORDERED: cefTRIAXone INJ 1,000 MG in SODIUM CHLORIDE 0.9% INJ 100 ML IV ONE (14:00)
[2017-01-21] MEDS ORDERED: PRED10PA2 PO (14:08)
[2017-01-21] MEDS ORDERED: HYDR-3533 PO (14:08)
[2017-01-21] MEDS ORDERED: CEPH-460 PO (14:08)
[2017-01-21] MEDS ORDERED: DICL75TA PO (14:08)
[2017-01-21 14:46] VITALS: RESP 18
[2017-01-21 15:36] VITALS: BP 146/72
== END 2017-01-21 15:37 | disposition home or self-care (01) ==
LOC: NEPC 11:58
DX: M13.0 Polyarthritis, unspecified (principal); N39.0 Urinary tract infection, site not specified; F17.200 Nicotine dependence, unspecified, uncomplicated; Z79.899 Other long term (current) drug therapy
CPT/HCPCS: 72131; 72170; 73564; 80048; 81001; 82550; 83735; 84443; 85025; 85652; 86140; 86430; 96365; 96375; 99285; J0696; J1885; J2270; J2405; J2930

== ENCOUNTER → 2017-07-11 | Day surgery (SDC) | payer MEDICAID ==
[~2017-07-11] VITALS: Ht 157.5 cm; Wt 72.5 kg
[~2017-07-11] MED LIST changes: +ACETAMINOPHEN/HYDROcodone 325 MG/5 MG TAB PO PRN; +APREPITANT 40 MG CAP ONE; +BUPIVACAINE/EPINEPHRINE 0.25% 50 ML VIAL ONE; +CEPH-460 PO; +CHLORHEXIDINE GLUCONATE 2 % 1 PACK (2 CLOTHS) TOPICAL PRN; +CHLORHEXIDINE GLUCONATE 4% SOLN 120 ML BTL TOPICAL SCH; +DEXAMETHASONE SOD PHOS 4 MG/ML VIAL IV ONE; +DEXAMETHASONE SOD PHOS 4 MG/ML VIAL ONE; +DICL75TA PO; +FAMOTIDINE 20 MG/2 ML VIAL ONE; +KETOROLAC TROMETHAMINE 30 MG/ML (IVP) VIAL IM PRN; +KETOROLAC TROMETHAMINE 30 MG/ML (IVP) VIAL IV PUSH ONE; +LACTATED RINGER'S 1000 ML IV PRN; +LIDOCAINE HCL 1% PF 5 ML SYRINGE OTHER ONE; +METO25TA3 PO; +METOPROLOL TARTRATE 25 MG TAB PO PRN; +MONT10TA2 PO; +MORPHINE SULFATE 4 MG/ML INJ ONE; +ONDANSETRON HCL 4 MG/2 ML VIAL IV PUSH ONE; +ONDANSETRON HCL 4 MG/2 ML VIAL IV PUSH PRN; +POVIDONE IODINE 5% (ANTISEPSIS KIT) 4 APPLICATIONS EACH NARE PRN; +PRED10PA2 PO; +PROPOFOL 200 MG/20 ML AMP IV ONE; +SODIUM CHLORID 0.9% 500 ML IV PRN; +TRAM50TA PO; +TRIAMCINOLONE ACETONIDE 40 MG/ML VIAL ONE
--- NOTE | 2017-07-11 10:29 | MP ---
cc: Dick Thompson MD DATE OF OPERATION: 07/11/2017 DATE OF PROCEDURE: 07/11/2017 SURGEON: Dick Thompson MD PREOPERATIVE DIAGNOSIS: Left knee pain. POSTOPERATIVE DIAGNOSIS: Osteochondral lesion medial femoral condyle and medial tibial plateau. PROCEDURE PERFORMED: Chondroplasty medial femoral condyle and medial tibial plateau, arthroscopic. DETAILS OF PROCEDURE: The patient was placed on the operating table in the supine position. Adequate general anesthesia was administered by the anesthesiologist. The patient's left knee was prepped and draped in the usual sterile fashion, a timeout was called, and the patient's name, procedure, location, etc. were fully confirmed. An Esmarch bandage was used to exsanguinate the left lower extremity and the pneumatic tourniquet was inflated to a pressure of 300. An anterolateral portal was used for introduction of the scope and a systematic examination of the knee joint revealed a very small osteochondral lesion down to bone, measuring less than 0.5 cm directly underneath the posterior horn of the medial meniscus. There also appeared to be some fraying and osteochondral lesions involving the intercondylar fossa along the medial side, possibly secondary to a previous osteochondritis. The medial and lateral menisci were fully intact and the articular surfaces of the lateral compartment also were unremarkable. The patella also was unremarkable. It was tracking centrally. There was no fluid within the joint. A meniscal resector was placed into the medial compartment and a chondroplasty of the above-mentioned areas was performed with the motorized instrument. All debris was thoroughly aspirated and removed. The 2 stab wounds were closed with simple 3-0 nylon. An intra-articular injection through the lateral portal was carried out with 1 mL of 40 mg Kenalog, along with 1 mL of 2% lidocaine and 1 mL of 0.5% Marcaine. This needle was then removed, a sterile dressing was applied and the tourniquet was deflated. An examination of the foot revealed adequate return of circulation. Sponge count, needle counts and instrument counts were reportedly correct x 2. The estimated blood loss was nil. The patient tolerated the procedure well and went to the recovery room in satisfactory condition. Dick Thompson MD [facility] , 09:51 AM , 10:27 AM
[2017-07-11 12:50] VITALS: BP 120/69; PULSE 80; RESP 15; TEMP 98.2; O2SAT 98
== END | disposition home or self-care (01) ==
LOC: PHSDC 06:53
PROVIDERS: ATTEND Orthopaedic Surgery
DX: M89.9 Disorder of bone, unspecified (principal)
CPT/HCPCS: 01400; 29877; J1100; J1885; J2270; J2405; J3010; J3301; J7120; J8501

== ENCOUNTER 2017-09-21 13:17 | Emergency (ER) | payer MEDICAID ==
[~2017-09-21] VITALS: Ht 162.6 cm; Wt 85.0 kg
[~2017-09-21 13:17] MED LIST changes: -ACETAMINOPHEN/HYDROcodone 325 MG/5 MG TAB PO PRN; -APREPITANT 40 MG CAP ONE; -BUPIVACAINE/EPINEPHRINE 0.25% 50 ML VIAL ONE; -CEPH-460 PO; -CHLORHEXIDINE GLUCONATE 2 % 1 PACK (2 CLOTHS) TOPICAL PRN; -CHLORHEXIDINE GLUCONATE 4% SOLN 120 ML BTL TOPICAL SCH; -DEXAMETHASONE SOD PHOS 4 MG/ML VIAL IV ONE; -DEXAMETHASONE SOD PHOS 4 MG/ML VIAL ONE; -FAMOTIDINE 20 MG/2 ML VIAL ONE; -HYDR-3533 PO; -KETOROLAC TROMETHAMINE 30 MG/ML (IVP) VIAL IM PRN; -KETOROLAC TROMETHAMINE 30 MG/ML (IVP) VIAL IV PUSH ONE; -LACTATED RINGER'S 1000 ML IV PRN; -LEVO750T3 PO; -LIDOCAINE HCL 1% PF 5 ML SYRINGE OTHER ONE; -METOPROLOL TARTRATE 25 MG TAB PO PRN; -MORPHINE SULFATE 4 MG/ML INJ ONE; -ONDANSETRON HCL 4 MG/2 ML VIAL IV PUSH ONE; -ONDANSETRON HCL 4 MG/2 ML VIAL IV PUSH PRN; -POVIDONE IODINE 5% (ANTISEPSIS KIT) 4 APPLICATIONS EACH NARE PRN; -PRED10PA2 PO; -PROPOFOL 200 MG/20 ML AMP IV ONE; -SODIUM CHLORID 0.9% 500 ML IV PRN; -TIZA4CAP3 PO; -TRIAMCINOLONE ACETONIDE 40 MG/ML VIAL ONE
[2017-09-21 13:33] VITALS: BP 183/84; PULSE 78; RESP 16; TEMP 98.1; O2SAT 99
[2017-09-21] MEDS ORDERED: RANI150T PO (13:55)
[2017-09-21] MEDS ORDERED: SUCR1TAB PO (13:55)
[2017-09-21 14:11] VITALS: BP 140/96; PULSE 70; RESP 24; O2SAT 99
[2017-09-21] MEDS ORDERED: SODIUM CHLOR 0.9% 1000 ML INJ 1,000 ML IV SCH (14:15)
[2017-09-21] MEDS ORDERED: SODIUM CHLORIDE 0.9% FLUSH 10 ML FLUSH IV FLUSH PRN (14:15)
[2017-09-21] MEDS ORDERED: KETOROLAC TROMETHAMINE 30 MG/ML (IVP) VIAL IVP ONE (14:15)
[2017-09-21] MEDS: ONDANSETRON ODT 4 MG TAB PO ONE ×2 (14:15→14:40)
--- NOTE | 2017-09-21 14:19 | PD ---
HPI Chief Complaint: Flank/Kidney Pain Time Seen by Provider: 13:41 Travel History International Travel<30 days: No Contact w/Intl Traveler<30days: No Traveled to known affect area: No History of Present Illness HPI pt is a pleasant 32 y.o female who presents to the ED with a cc of RUQ pain. Pt states that she started having 8/10 constant, non-radiating RUQ pain on Friday. She went to [place] ED on Friday where they did an US of RUQ and r/o cholecystitis and cholelithiasis.. She was given antacids and antiemetics and discharged home. Pain persisted and yesterday she developed vomiting. She vomited 3 times yesterday and has not been able to hold anything down since today. Denies Fever, SOB, CP, dysuria, hematuria. States her symptoms are moderate, intermittent, for the past month or so, associated signs and symptoms in context as above per History Past Medical History LMP: 09/02/17 : 2 Para: 1 Social History Alcohol Use: Yes (RARELY) Tobacco Use: Yes Allergies-Medications (Allergen,Severity, Reaction): Coded Allergies: levofloxacin (Verified Adverse Reaction, Severe, SEVERE JOINT PAIN, 09/21/17 ) Reported Meds & Prescriptions Reported Meds & Active Scripts Active Diclofenac Sodium DR (Diclofenac Sodium) 75 Mg Tabdr 75 Mg PO BID PRN Reported Sucralfate 1 Gram Tab 1 Gm PO QID on empty stomach Ranitidine (Ranitidine HCl) 150 Mg Tab 150 Mg PO BID Singulair (Montelukast Sodium) 10 Mg Tab 10 Mg PO HS Metoprolol Tartrate 25 Mg Tab 25 Mg PO BID Zofran Odt (Ondansetron Odt) 4 Mg Tab 4 Mg SL Q8HR PRN Review of Systems Except as stated in HPI: all other systems reviewed are Neg Physical Exam Narrative GENERAL: well developed, well nourished female in minimal distress SKIN: Warm and dry. HEAD: Atraumatic. Normocephalic. EYES: Pupils equal and round. No scleral icterus. No injection or drainage. ENT: No nasal bleeding or discharge. Mucous membranes pink and moist. NECK: Trachea midline. No JVD. CARDIOVASCULAR: Regular rate and rhythm. 2/6 holosystolic murmur RESPIRATORY: No accessory muscle use. Clear to auscultation. Breath sounds equal bilaterally. GASTROINTESTINAL: Abdomen is mildly firm with voluntary guarding, minimally tender throughout, but more so on the RUQ region. nondistended. No rebound tenderness. Negative Oliver sign. Psoas and obturator signs negative, Rovsing sign negative. MUSCULOSKELETAL: Extremities without clubbing, cyanosis, or edema. No obvious deformities. NEUROLOGICAL: Awake and alert. No obvious cranial nerve deficits. Motor grossly within normal limits. Five out of 5 muscle strength in the arms and legs. Normal speech. PSYCHIATRIC: Appropriate mood and affect; insight and judgment normal. Data Data Last Documented VS Vital Signs Date Time Temp Pulse Resp B/P (MAP) Pulse Ox O2 Delivery O2 Flow Rate FiO2 09/21/17 17:47 09/21/17 17:16 20 09/21/17 16:20 81 100 Room Air 09/21/17 13:33 98.1 Orders Orders Complete Blood Count With Diff (09/21/17 14:15) Comprehensive Metabolic Panel (09/21/17 14:15) Lipase (09/21/17 14:15) Urinalysis - C+S If Indicated (09/21/17 14:15) Ct Abd/Pel W Iv Contrast(Rout) (09/21/17 14:15) Iv Access Insert/Monitor (09/21/17 14:15) Ecg Monitoring (09/21/17 14:15) Oximetry (09/21/17 14:15) Sodium Chlor 0.9% 1000 Ml Inj (Ns 1000 M (09/21/17 14:15) Sodium Chloride 0.9% Flush (Ns Flush) (09/21/17 14:15) Ketorolac Inj (Toradol Inj) (09/21/17 14:15) Ed Urine Pregnancytest Poc (09/21/17 14:15) Ondansetron Odt (Zofran Odt) (09/21/17 14:15) Promethazine Inj (Phenergan Inj) (09/21/17 15:00) Morphine Inj (Morphine Inj) (09/21/17 16:45) Iohexol 350 Inj (Omnipaque 350 Inj) (09/21/17 17:02) Ed Discharge Order (09/21/17 17:15) Labs Laboratory Tests Test 09/21/17 14:30 White Blood Count 11.0 TH/MM3 Red Blood Count 4.67 MIL/MM3 Hemoglobin 14.8 GM/DL Hematocrit 43.7 % Mean Corpuscular Volume 93.7 FL Mean Corpuscular Hemoglobin 31.8 PG Mean Corpuscular Hemoglobin Concent 33.9 % Red Cell Distribution Width 13.8 % Platelet Count 272 TH/MM3 Mean Platelet Volume 9.7 FL Neutrophils (%) (Auto) 72.4 % Lymphocytes (%) (Auto) 21.0 % Monocytes (%) (Auto) 5.5 % Eosinophils (%) (Auto) 0.6 % Basophils (%) (Auto) 0.5 % Neutrophils # (Auto) 7.9 TH/MM3 Lymphocytes # (Auto) 2.3 TH/MM3 Monocytes # (Auto) 0.6 TH/MM3 Eosinophils # (Auto) 0.1 TH/MM3 Basophils # (Auto) 0.1 TH/MM3 CBC Comment DIFF FINAL Differential Comment Urine Color YELLOW Urine Turbidity HAZY Urine pH 6.5 Urine Specific [place] 1.017 Urine Protein NEG mg/dL Urine Glucose (UA) NEG mg/dL Urine Ketones 40 mg/dL Urine Occult Blood NEG Urine Nitrite NEG Urine Bilirubin NEG Urine Urobilinogen LESS THAN 2.0 MG/DL Urine Leukocyte Esterase NEG Urine RBC 2 /hpf Urine WBC 1 /hpf Urine Squamous Epithelial Cells 10 /hpf Urine Mucus FEW /lpf Microscopic Urinalysis Comment CULT NOT INDICATED Blood Urea Nitrogen 11 MG/DL Creatinine 0.66 MG/DL Random Glucose 72 MG/DL Total Protein 8.5 GM/DL Albumin 4.9 GM/DL Calcium Level 9.2 MG/DL Alkaline Phosphatase 65 U/L Aspartate Amino Transf (AST/SGOT) 17 U/L Alanine Aminotransferase (ALT/SGPT) 24 U/L Total Bilirubin 0.6 MG/DL Sodium Level 140 MEQ/L Potassium Level 4.1 MEQ/L Chloride Level 105 MEQ/L Carbon Dioxide Level 25.1 MEQ/L Anion Gap 10 MEQ/L Estimat Glomerular Filtration Rate 104 ML/MIN Lipase 68 U/L MDM Medical Decision Making Medical Screen Exam Complete: Yes Emergency Medical Condition: Yes Differential Diagnosis cholecystitis, cholangitis, peritonitis, PID, appendicitis. Narrative Course Patient room to the emergency department, given this is her second ER visit and so many days, she will undergo a CAT scan. Her abdomen is minimally firm but appears to be voluntary guarding only, CT abdomen pelvis does not demonstrate any acute pathology, Last 24 hours Impressions Abdomen/Pelvis CT 09/21/17 2199 Signed Impressions: CONCLUSION: 1. No acute obstructive uropathy. 2. 2.9 x 2.6 x 2.7 cm right ovarian cyst. 3. Mild scoliosis of the lumbar spine. Discussed the right ovarian cyst with her, not so sure that this is actually was causing her pain. She was offered a pelvic exam and declined. On reexamination her abdomen is now benign. Discussed follow-up with an STATISTICS TEACHER and a stone decorator. Discussed return to ED criteria and symptomatic management. She is stable for Diagnosis Primary Impression: Abdominal pain of unknown cause Referrals: Pk Velarde MD, Zachary Sloan MD Disposition: 01 DISCHARGE HOME Condition: Stable Santo Hoang MD Sep 21, 2017 14:19
[2017-09-21 14:31] VITALS: O2SAT 97
[2017-09-21 14:56] VITALS: BP 159/96; PULSE 84; RESP 22; O2SAT 96
[2017-09-21] MEDS ORDERED: PROMETHAZINE INJ 25 MG/ML VIAL IM ONE (15:00)
[2017-09-21 15:24] LABS: AUTOMATED NEUTROPHIL # 7.9 TH/MM3 (1.8-7.7); BASOPHIL # 0.1 TH/MM3 (0-0.2); BASOPHIL % 0.5 % (0.0-2.0); EOSINOPHIL # 0.1 TH/MM3 (0-0.4); EOSINOPHIL % 0.6 % (0.0-4.0); HEMATOCRIT 43.7 % (35.0-46.0); HEMOGLOBIN 14.8 GM/DL (11.6-15.3); LYMPHOCYTE # 2.3 TH/MM3 (1.0-4.8); MEAN CELL VOLUME 93.7 FL (80.0-100.0); MEAN CORPUSCULAR HEMOGLOBIN 31.8 PG (27.0-34.0); MEAN CORPUSCULAR HGB CONC 33.9 % (32.0-36.0); MEAN PLATELET VOLUME 9.7 FL (7.0-11.0); MONO % 5.5 % (0.0-8.0); MONOCYTE # 0.6 TH/MM3 (0-0.9); NEUT % 72.4 % (16.0-70.0); PLATELET COUNT 272 TH/MM3 (150-450); RED BLOOD COUNT 4.67 MIL/MM3 (4.00-5.30); RED CELL DISTRIBUTION WIDTH 13.8 % (11.6-17.2)
[2017-09-21 15:29] LABS: BILIRUBIN, URINE NEG (NEG); BLOOD, URINE NEG (NEG); GLUCOSE,URINE NEG (NEG); KETONE, URINE 40 mg/dL (NEG); MUCUS URINE FEW /lpf (OCC); NITRITE,URINE NEG (NEG); PH, URINE 6.5 (5.0-8.5); SQUAMOUS EPITHELIAL CELL URINE 10 /hpf (0-5); URINE COLOR YELLOW (YELLW/STRAW); URINE LEUKOCYTE ESTERASE NEG (NEG)
[2017-09-21 15:48] LABS: ALBUMIN 4.9 GM/DL (3.4-5.0); ALT (GPT) 24 U/L (10-53); AST (GOT) 17 U/L (15-37); BICARBONATE 25.1 MEQ/L (21.0-32.0); BLOOD UREA NITROGEN 11 MG/DL (7-18); CALCIUM 9.2 MG/DL (8.5-10.1); CHLORIDE 105 MEQ/L (98-107); CREATININE 0.66 MG/DL (0.50-1.00); GLOMERULAR FILTRATION RATE 104 ML/MIN (>89); GLUCOSE,RANDOM 72 MG/DL (74-106); SODIUM (NA) 140 MEQ/L (136-145)
[2017-09-21 15:50] LABS: ALKALINE PHOSPHATASE 65 U/L (45-117); TOTAL BILIRUBIN ADULT 0.6 MG/DL (0.2-1.0); TOTAL PROTEIN 8.5 GM/DL (6.4-8.2)
[2017-09-21 16:20] VITALS: BP 158/76; PULSE 81; RESP 20; O2SAT 100
[2017-09-21] MEDS ORDERED: MORPHINE SULFATE 4 MG/ML INJ IV PUSH ONE (16:45)
[2017-09-21] MEDS ORDERED: IOHEXOL 350 MG/ML 10 ML VIAL (for RAD DIAG) IVCONTRAST ONE (17:02)
--- NOTE | 2017-09-21 17:11 | RADRPT ---
EXAM DATE: 09/21/2017 5:03 PM EDT AGE/SEX: 32 years / Female INDICATIONS: Right flank pain x 3 days. Vomiting. CLINICAL DATA: This is the patient's initial encounter. Patient reports that signs and symptoms have been present for 3 days and indicates a pain score of 7/10. MEDICAL/SURGICAL HISTORY: Cardiovascular disease. Hiatal hernia. Hypertension. Esophagitis. None. ORAL CONTRAST: No oral contrast ingested. RADIATION DOSE: 10.21 CTDI (mGy) COMPARISON: No prior [facility] exams available for comparison. TECHNIQUE: Multiple contiguous axial images were obtained through the abdomen and pelvis following b olus infusion of 93 ml Omnipaque 350 (iohexol) nonionic water-soluble contrast as a single exam dos e. No oral contrast ingested. Using automated exposure control and adjustment of the mA and/or kV ac cording to patient size, the radiation dose was kept as low as reasonably achievable to obtain optima l diagnostic quality images. FINDINGS: Lower Lungs: The visualized lower lungs are clear. Liver: The liver has a homogeneous density without space-occupying lesion. There is no dilation of th e biliary tree. Spleen: Homogeneous density without enlargement. Pancreas: Unremarkable without mass or calcification. Kidneys: Normal in size and shape. No evidence of mass or hydronephrosis. Adrenal Glands: Unremarkable. Aorta: The aorta and proximal iliac vessels are grossly unremarkable without aneurysmal dilation. Bowel/Mesentery: The bowel loops are grossly unremarkable. The cecum and sigmoid colon have a normal configuration. Abdominal Wall: Intact. Retroperitoneum: No evidence of adenopathy in the retrocrural, para-aortic, or deep pelvic regions. Bladder: Contours are smooth. Reproductive Organs: There is a 2.9 x 2.6 x 2.7 cm right ovarian cyst. The left ovary is unremarkabl e. The uterus is also unremarkable. Inguinal: The inguinal region is unremarkable without evidence of adenopathy. Bony Structures: Mild scoliosis of the lumbar spine is noted. CONCLUSION: 1. No acute obstructive uropathy. 2. 2.9 x 2.6 x 2.7 cm right ovarian cyst. 3. Mild scoliosis of the lumbar spine. Electronically signed by: Santo Cancino MD 09/21/2017 5:10 PM EDT
[2017-09-21 17:16] VITALS: RESP 20
== END 2017-09-21 18:00 | disposition home or self-care (01) ==
LOC: NEPC 13:17
DX: N83.201 Unspecified ovarian cyst, right side (principal); M41.9 Scoliosis, unspecified; Z72.0 Tobacco use; Z88.8 Allergy status to other drugs, medicaments and biological substances; Z79.899 Other long term (current) drug therapy
CPT/HCPCS: 74177; 80053; 81001; 83690; 84703; 85025; 96361; 96372; 96374; 96375; 99284; J1885; J2270; J2550; J7030; Q9967